=== PATIENT | female | born 1990 | race Two or more races ===

== ENCOUNTER 2023-04-20 09:20 | Day surgery (SDC) | payer OTHER ==
[2023-04-17 15:24] VITALS: BMI 25.3
[2023-04-20] MEDS ORDERED: MIDAZOLAM HCL 2 MG/2 ML SINGLE DOSE VIAL ONE (10:35)
[2023-04-20] MEDS ORDERED: ROPIVACAINE HCL 0.5% 30ML VIAL ONE (10:36)
[2023-04-20] MEDS ORDERED: TRANEXAMIC ACID 1000 MG/10 ML VIAL ONE ×2 (10:40→13:22)
[2023-04-20] MEDS ORDERED: BUPIVACAINE HCL/EPINEPHRINE/PF 30 ML VIAL IJ ONE (10:41)
[2023-04-20] MEDS ORDERED: FENTANYL CITRATE/PF 50 MCG/ML VIAL ONE (10:41)
[2023-04-20] MEDS ORDERED: VANCOMYCIN 1,000 MG VIAL (RESTRICTED TO ID ONLY) ONE (10:58)
[2023-04-20] MEDS ORDERED: ROCURONIUM BROMIDE 50 MG/5 ML SYRINGE ONE (11:15)
[2023-04-20] MEDS ORDERED: PROPOFOL 40 ML ONE (11:15)
[2023-04-20] MEDS ORDERED: BUPIVACAINE 0.25% /EPI 1:200,000 10 ML VIAL NR ONE (12:01)
[2023-04-20] MEDS ORDERED: GLYCOPYRROLATE 0.2 MG/1 ML VIAL ONE (12:07)
[2023-04-20] MEDS ORDERED: ONDANSETRON 4 MG/2 ML VIAL ONE (12:07)
[2023-04-20] MEDS ORDERED: NEOSTIGMINE METHYLSULFATE 0.5 MG/1 ML - 10 ML MDV ONE (12:07)
[2023-04-20] MEDS ORDERED: PROPOFOL 20 ML ONE (12:15)
[2023-04-20] MEDS ORDERED: TRANEXAMIC ACID 1000 MG/10 ML VIAL IVPB ONE (13:30)
[2023-04-20] MEDS ORDERED: VANCOMYCIN 1,000 MG VIAL (RESTRICTED TO ID ONLY) IVPB ONE (13:37)
[2023-04-20 15:24] VITALS: TEMP 97.5
[2023-04-20 16:19] VITALS: BP 114/67; PULSE 82; RESP 18
== END 2023-04-20 16:20 | disposition home or self-care (01) ==
LOC: FASU 09:20
PROVIDERS: ATTEND Orthopaedic Surgery
PROC: 0PS904Z Reposition Right Clavicle with Internal Fixation Device, Open Approach (ICD-10-PCS; principal; 2023-04-20 12:01)
DX: S42.001A Fracture of unspecified part of right clavicle, initial encounter for closed fracture (principal); X58.XXXA Exposure to other specified factors, initial encounter; Y93.9 Activity, unspecified; Y92.9 Unspecified place or not applicable; Y99.9 Unspecified external cause status
CPT/HCPCS: 23515; C1713; 73000-TC-RT-FY; 81025; 94760